=== PATIENT | male | born 1970 | race African-American/Black ===

== ENCOUNTER 2018-10-18 15:44 | Emergency (ER) | payer OTHER ==
[~2018-10-18] VITALS: Ht 172.7 cm; Wt 113.4 kg
[~2018-10-18 15:44] MED LIST: DOLOGESIC CAPSU1 CAP PO; HYZAAR; ORPH100T PO
[2018-10-18] MEDS ORDERED: LASIX20 MG (15:56)
[2018-10-18] MEDS ORDERED: ATACAND32 MG (15:56)
[2018-10-18] MEDS ORDERED: NORVASC5 MG (15:57)
== END 2018-10-18 20:32 | disposition home or self-care (01) ==
LOC: ER 15:44
DX: S90.121A Contusion of right lesser toe(s) without damage to nail, initial encounter (principal); W22.8XXA Striking against or struck by other objects, initial encounter; Y93.89 Activity, other specified; Y92.018 Other place in single-family (private) house as the place of occurrence of the external cause; Y99.8 Other external cause status

== ENCOUNTER 2018-12-01 15:58 | Emergency (ER) | payer OTHER ==
[~2018-12-01] VITALS: Ht 172.7 cm; Wt 113.4 kg
[~2018-12-01 15:58] MED LIST changes: +ATACAND32 MG; +LASIX20 MG; +NORVASC5 MG
[2018-12-01] MEDS ORDERED: MUCINEX DM ER1 EAC1 PO (17:47)
[2018-12-01] MEDS ORDERED: TESSALON PERLE100 M1 PO (17:47)
[2018-12-01] MEDS ORDERED: KETO10TA2 PO (17:47)
[2018-12-01] MEDS ORDERED: AIRBORNE EFFER1 EACH PO (17:47)
== END 2018-12-01 18:45 | disposition home or self-care (01) ==
LOC: ER 15:58
DX: B34.9 Viral infection, unspecified (principal); J06.9 Acute upper respiratory infection, unspecified

== ENCOUNTER 2019-03-01 14:20 | Emergency (ER) | payer OTHER ==
[~2019-03-01] VITALS: Ht 172.7 cm; Wt 114.8 kg
[~2019-03-01 14:20] MED LIST changes: +AIRBORNE EFFER1 EACH PO; +KETO10TA2 PO; +MUCINEX DM ER1 EAC1 PO; +TESSALON PERLE100 M1 PO
[2019-03-01] MEDS ORDERED: HYDRALAZINE HCL25 MG (14:40)
[2019-03-01] MEDS ORDERED: NORVASC10 MG (14:41)
== END 2019-03-01 17:54 | disposition home or self-care (01) ==
LOC: ER 14:20
DX: B34.9 Viral infection, unspecified (principal)

== ENCOUNTER 2020-02-11 12:18 | Emergency (ER) | payer OTHER ==
[~2020-02-11] VITALS: Ht 172.7 cm; Wt 109.8 kg
[~2020-02-11 12:18] MED LIST changes: +HYDRALAZINE HCL25 MG; +NORVASC10 MG
[2020-02-11] MEDS ORDERED: ADULT LOW DOSE81 M1 PO (12:44)
== END 2020-02-11 14:16 | disposition home or self-care (01) ==
LOC: ER 12:18
DX: S93.492A Sprain of other ligament of left ankle, initial encounter (principal); X50.1XXA Overexertion from prolonged static or awkward postures, initial encounter; Y93.01 Activity, walking, marching and hiking; Y92.69 Other specified industrial and construction area as the place of occurrence of the external cause; Y99.8 Other external cause status